=== PATIENT | female | born 1985 | race African-American/Black ===

== ENCOUNTER 2019-09-09 09:01 | Outpatient (CLI) | payer MEDICAID ==
--- NOTE | 2019-09-09 09:41 | MMO ---
Bilateral MAMMO [facility]at [facility]. CLINICAL HISTORY: Patient is 33 years old and is seen for diagnostic exam. The patient has the following family history of breast cancer: maternal grandmother, at age 43, malignant (generic). The patient has no personal history of cancer. VIEWS: The views performed were: bilateral craniocaudal with tomosynthesis; bilateral mediolateral oblique with tomosynthesis; and bilateral mediolateral with tomosynthesis. This study has been interpreted with the assistance of computer-aided detection. MAMMOGRAM FINDINGS: There are scattered fibroglandular densities. There are no suspicious masses, suspicious calcifications, or new areas of architectural distortion. IMPRESSION: THERE IS NO MAMMOGRAPHIC EVIDENCE OF MALIGNANCY. A ROUTINE FOLLOW-UP MAMMOGRAM AT AGE 41 IS RECOMMENDED. THE RESULTS OF THIS EXAM WERE SENT TO THE PATIENT. ACR BI-RADS Category 1 - Negative MAMMOGRAPHY NOTE: 1. A negative mammogram report should not delay a biopsy if a dominant of clinically suspicious mass is present. 2. Approximately 10% to 15% of breast cancers are not detected by mammography. 3. Adenosis and dense breasts may obscure an underlying neoplasm. Reported by: GEOFF FLOR MD Electonically Signed: [id number]
== END 2019-09-09 09:02 | disposition home or self-care (01) ==
LOC: BICMAMMO 09:01
PROVIDERS: ATTEND Family Medicine
DX: N64.4 Mastodynia (principal)
CPT/HCPCS: 77066; G0279

== ENCOUNTER 2025-07-15 17:10 | Emergency (ER) | payer OTHER, SELFPAY ==
[2025-07-15] MEDS ORDERED: Acetaminophen 500 MG TAB ONE (18:15)
== END 2025-07-15 18:17 | disposition home or self-care (01) ==
LOC: ERS 17:10
DX: S50.811A Abrasion of right forearm, initial encounter (principal); S50.812A Abrasion of left forearm, initial encounter; D57.3 Sickle-cell trait; V53.0XXA Driver of pick-up truck or van injured in collision with car, pick-up truck or van in nontraffic accident, initial encounter; Y92.481 Parking lot as the place of occurrence of the external cause
CPT/HCPCS: 99284